=== PATIENT | male | born 1955 | race Caucasian/White ===

== ENCOUNTER 2025-01-03 21:51 | Emergency (ER) | payer MEDICARE, SELFPAY ==
[2025-01-03 21:57] VITALS: BP 142/90
[2025-01-03 23:43] VITALS: BP 144/83; BMI 27.4
--- NOTE | 2025-01-04 00:07 | ED.MUSCINJ ---
HPI-Injury
General
Chief Complaint: Fall
Source: patient and spouse
Exam Limitations: none
Time Seen by Provider: 01/03/25 23:46
Nursing documentation reviewed up to this point in time: agreed with
History of Present Illness-Injury
Is this injury a work related problem?: No
Is pt an associate of [facility]?: No
Initial Injury comments:
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
Past History
Past History
ED Past Medical History: Hypercholesterolemia
Social History
Tobacco: Non-smoker
Alcohol: None
Drug: None
Personal:
Living: with family
Employment: Retired
Review of Systems
Review of Systems
All Other Systems: Not applicable
Constitutional: Denies fever or fatigue
Respiratory: Reports trouble breathing; Denies cough
Cardiac: Reports chest pain (Chest wall pain)
ABD/GI: Reports no symptoms
Skin: Reports no symptoms
Neurological: Reports no symptoms
Phy Exam
Physical Exam
Physical Exam:
Physical Exam
General: no apparent distress, not acutely ill
Neck: No tongue bite no posterior neck pain
Heart: s1/s2 regular rate and rhythm, no murmur. equal radial pulses.
Lungs: no acute respiratory distress. clear bilaterally tender right mid upper ribs no crepitance
Abdomen: Nontender
Neuro: alert and oriented. no focal neurological deficits
Skin: no rash
Psychiatric: well kept. interactive and cooperative
Extremities: no edema.
Injury Course
Orders/Labs/Results
Orders:
Orders
01/03/25 22:02
Ribs, Right 3 View W/PA Chest [CR Ribs-right 3 Vw W/pa Chest*] Urgent
Comment:
Reason For Exam: pain
01/04/25 00:07
Oxycodone/Acetaminophen [Percocet 5/325] 1 tablet PO NOW STA
Incentive Spirometry [Rx Incentive Spirometry] [RESP] Urgent
Frequency: q1h while awake
MDM/Problems Addressed
Differential Diagnosis Includes:
Contusion rib fracture pneumothorax
MDM/Problems Addressed:
Rib fracture
*Radiology
Radiology exam reviewed: radiology read reviewed
*Pulse Oximetry
SaO2: 95
Oxygen Mode of Delivery: Room air
Patient hypoxic: no
*Critical Care Note
Total Time (30-74mins, 75-104mins- exclusive of procedures): Not Applicable
Update Note
Update Note:
Update 2 or 3 rib fracture without pneumothorax soft nontender abdomen no neck pain no head strike will start incentive spirometry, pain meds reviewed typical recovery with patient and spouse
ED Attending Note
-
Portions of this chart may have been created with voice recognition software.� Occasional wrong word or��sound alike� substitutions may have occurred due to the inherent limitations of voice recognition software.
Discharge Plan
Departure
Patient Disposition: Home (Routine Discharge)
Date of Disposition: 01/04/25
Time of Disposition: 00:10
Patient with high blood pressure during this ER visit?: No
Condition: Good
Discharge Problem:
Closed rib fracture
Instructions: Rib fracture or bruised rib - ED (DC)
Prescriptions:
No Action
atorvastatin 40 mg Tablet
40 mg PO DAILY
citalopram 10 mg Tablet
10 mg PO DAILY
tamsulosin 0.4 mg Capsule
0.4 mg PO DAILY
fluticasone propionate 50 mcg/actuation [place],Suspension
1 spray INTRANASAL DAILY
finasteride 5 mg Tablet
5 mg PO DAILY
bupropion HCl [Wellbutrin XL] 150 mg Tablet Extended Release 24 Hr
150 mg PO DAILY
varenicline tartrate [Chantix] 0.5 mg Tablet
0.5 mg PO DAILY
umeclidinium 62.5 mcg/actuation Blister With Device
1 inh INHALATION DAILY
[id number] pepper 125 mg-6 mg- 50 mcg Tablet,Chewable
1 tab PO DAILY
Activity Restrictions/Additional Instructions:
Use incentive spirometer every hour while awake
Percocet every 4-6 hours as needed for pain
Use a stool softener when using Percocet to prevent constipation
Return to the ER if trouble breathing abdominal pain fevers coughing up blood or any other concerns
Interventions
Interventions:
*Risk Screen - Suicide Last Done: 01/03/25 21:57
*General Assessment Last Done: 01/03/25 21:57
*Neglect/Abuse Screening Last Done: 01/03/25 23:44
*ED- Fall Risk Assessment Last Done: 01/03/25 23:44
*ED COVID-19 Vaccine History Last Done: 01/03/25 23:44
ED-Musculoskeletal Assessment Last Done: 01/03/25 23:59
ED- Neurological Assessment Last Done: 01/03/25 23:59
ED-Skin Assessment Last Done: 01/03/25 23:59
Discharge Date and Time
Print Language: TAIWANESE
[2025-01-04] MEDS: PERCOCET 5/325 1 TABLET PO (00:15)
== END 2025-01-04 00:43 | disposition home or self-care (01) ==
LOC: EMR 21:51
PROVIDERS: EMERGENCY PHYSICIAN Emergency Medicine; FAMILY PHYSICIAN Internal Medicine
DX: S22.41XA Multiple fractures of ribs, right side, initial encounter for closed fracture (principal); W01.198A Fall on same level from slipping, tripping and stumbling with subsequent striking against other object, initial encounter; E78.00 Pure hypercholesterolemia, unspecified
CPT/HCPCS: 99283; 71101